=== PATIENT | male | born 1940 | race Caucasian/White ===

== ENCOUNTER 2023-12-25 06:01 | Inpatient (IN) ==
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
[2023-12-25 06:52] LABS: Basophils # (auto) 0.05 K/uL (0.00-0.20); Basophils % (auto) 0.5 %; Eosinophils # (auto) 0.49 K/uL (0.00-0.50); Hematocrit (blood only) 37.9 % (42.0-52.0); Hemoglobin 12.1 g/dl (14.0-18.0); Immature Granulocytes # (auto) 0.05 K/uL (0.01-0.20); Immature Granulocytes % (auto) 0.5 %; Lymphocytes # (auto) 1.36 K/uL (1.20-3.40); Mean Corpuscular Hemoglobin 26.9 pg (25.0-34.0); Mean Corpuscular Hgb Conc 31.9 g/dL (32.0-36.0); Mean Corpuscular Volume 84.4 fL (80.0-100.0); Mean Platelet Volume 8.7 fL (9.4-12.4); Monocytes % (auto) 6.2 %; Neutrophils # (auto) 7.17 K/uL (1.40-6.50); Neutrophils % (auto) 73.8 %; Platelet Count 230 K/uL (130-400); RDW Coefficient of Variation 13.8 % (11.5-14.5); RDW Standard Deviation 42.9 fL (36.4-46.3); Red Blood Count 4.49 M/uL (4.70-6.10); White Blood Count 9.72 K/ul (4.8-10.8)
[2023-12-25] MEDS: ACETAMINOPHEN 325 MG TAB PO STA (07:04)
[2023-12-25] MEDS: SODIUM CHLORIDE 0.9% 500 ML IV ONE (07:05)
--- NOTE | 2023-12-25 07:08 | CT Scan Report ---
CT SCAN OF THE BRAIN WITHOUT IV CONTRAST CLINICAL HISTORY: Change in mental status. COMPARISON STUDY: No priors. TECHNIQUE: Unenhanced axial CT scan of the brain is performed from the vertex to the skull base. A do se lowering technique was utilized adhering to the principles of ALARA. CT DOSE: 800.63 mGy.cm FINDINGS: Brain parenchyma: There is age-related involutional change noting mild to moderate subcortical and pe riventricular microangiopathic disease. There is no hemorrhage, mass effect, or evidence of acute ter ritorial ischemia by CT criteria. Myles-white matter differentiation is preserved. No extra-axial flui d collection is seen. Ventricles, sulci, cisterns: Prominent secondary to involutional change. Intracranial vasculature: There is atherosclerotic calcification of the cavernous carotid and vertebr al arteries. Calvarium: Unremarkable. Sinuses and mastoids: There is trace mucosal thickening within the maxillary antra. The remaining par anasal sinuses are clear. The mastoid air cells are well pneumatized. Orbits: The bony orbits are grossly intact. There are bilateral ocular lens implants. IMPRESSION: There is no hemorrhage, mass effect, or evidence of acute territorial ischemia by CT negin mantilla. ACT 112: Negative or not required by law. Electronically signed by: Danilo Hernandez M.D. 12/25/2023 7:06 AM
[2023-12-25] MEDS: ONDANSETRON INJ 2 MG/ML 2 ML VIAL IV STA (07:12)
--- NOTE | 2023-12-25 07:12 | XRay Report ---
SINGLE VIEW CHEST CLINICAL HISTORY: Change in mental status. FINDINGS: An AP, portable, upright chest radiograph is obtained. No prior studies are available for c omparison at the time of dictation. The heart is enlarged noting atherosclerotic calcification of the thoracic aorta. The pulmonary vasculature is noncongested. Nonspecific interstitial thickening is li rosa maria chronic. There is bibasilar scarring/atelectasis. No airspace consolidation or large pleural eff usion is identified. No pneumothorax is seen. The skeletal structures are osteopenic. The bony thorax is grossly intact. Arthritic change is seen in the shoulders and spine. IMPRESSION: Cardiomegaly with no acute cardiopulmonary abnormality identified. ACT 112: Negative or not required by law. Electronically signed by: Danilo Hernandez M.D. 12/25/2023 7:11 AM
[2023-12-25 07:22] LABS: Prothrombin Time 10.9 Seconds (9.0-12.0)
[2023-12-25 07:25] LABS: Albumin Globulin Ratio 1.1 (0.9-2); Bilirubin,Total 0.4 mg/dl (0.2-1.0); Calcium 9.8 mg/dl (8.6-10.3); Est GFR (African American) 45.5 ml/min; Est GFR (Non-African American) 39.3 ml/min; Globulin 3.5 gm/dl (2.5-4.0); Magnesium 1.9 mg/dl (1.7-2.4); Potassium 4.2 mmol/L (3.5-5.1); Total Protein 7.5 gm/dl (6.0-8.3)
[2023-12-25 07:32] LABS: Troponin I High Sensitivity 14.6 pg/ml (0-20)
[2023-12-25 07:42] LABS: Thyroid Stimulating Hormone 1.173 uIu/ml (0.300-4.500)
[2023-12-25 08:39] LABS: Appearance Urine Clear (Clear); Bacteria Urine Automated None Seen (None Seen); Bilirubin Urine Negative (Negative); Blood Urine Negative (Negative); Color Urine Yellow; Epithelial Cell Urine Auto 0-2 /hpf (0-2); Glucose Urine UA Trace (Negative); Ketones Urine Negative (Negative); Leukocyte Esterase Urine Negative (Negative); Nitrite Urine Negative (Negative); Protein Urine 3+ (Negative); RBC Urine Automated 0-2 /hpf (0-2); Specific Gravity Urine 1.019 (1.000-1.030); Urobilinogen Urine Negative (Negative); WBC Urine Automated 0-5 /hpf (0-5); pH Urine 5.5 (4.5-7.5)
[2023-12-25 08:52] LABS: Adenovirus PCR Not Detected (NotDetected); Bordetella parapertussis PCR Not Detected (NotDetected); Bordetella pertussis PCR Not Detected (NotDetected); Chlamydia pneumoniae PCR Not Detected (NotDetected); Coronavirus 229E PCR Not Detected (NotDetected); Coronavirus CoV-2 (COVID19)PCR Not Detected (NotDetected); Coronavirus HKU1 PCR Not Detected (NotDetected); Coronavirus NL63 PCR Not Detected (NotDetected); Coronavirus OC43PCR Not Detected (NotDetected); Human Metapneumovirus PCR Not Detected (NotDetected); Influenza A PCR Not Detected (NotDetected); Influenza B PCR Not Detected (NotDetected); Mycoplasma pneumoniae PCR Not Detected (NotDetected); Parainfluenza Virus 1 PCR Not Detected (NotDetected); Parainfluenza Virus 2 PCR Not Detected (NotDetected); Parainfluenza Virus 3 PCR Not Detected (NotDetected); Parainfluenza Virus 4 PCR Not Detected (NotDetected); Respiratory Syncytial VirusPCR Not Detected (NotDetected); Rhinovirus/Enterovirus PCR Not Detected (NotDetected)
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
[2023-12-25] MEDS: PHENYTOIN SODIUM ER 100 MG CAP PO SCH (10:30)
[2023-12-25 10:36] LABS: Base Excess VBG 2.1 mEq/L; HCO3 VBG 28 mmol/L; Oxygen Saturation VBG < 60.0 %; PCO2 VBG 47 mmHg (38-50); PO2 VBG 23 mmHg; pH VBG 7.38 (7.36-7.41)
[2023-12-25 11:25] LABS: Amphetamines+Metham, Urine Neg (Neg); Barbiturates, Urine Neg (Neg); Benzodiazepine, Urine Neg (Neg); Cocaine, Urine Neg (Neg); Fentanyl, Urine Neg (Neg); MDMA (Ecstacy), Urine Neg (Neg); Marijuana, Urine Neg (Neg); Methadone, Urine Neg (Neg); Opiate, Urine Neg (Neg); Phencyclidine, Urine Neg (Neg)
[2023-12-25] MEDS: GADOBUTROL 65ML VIAL IV ONE (12:15)
--- NOTE | 2023-12-25 13:02 | Magnetic Resonance Report ---
MR brain wo/w con HISTORY: 83 years-old Male confusion, melanoma acutely altered mental status COMPARISON: Head CT same day TECHNIQUE: Multiplanar multisequence MRI the brain was obtained with and without IV contrast. FINDINGS: No restricted diffusion to suggest acute or subacute infarct. Midline structures are unremarkable. De generative changes of the cervical spine. There is no acute intracranial hemorrhage, midline shift, a bnormal extra-axial collection, hydrocephalus or intra-axial mass. Study is motion degraded. Cerebral venous sinuses and major arterial flow voids appear patent. Prior bilateral lens repair. Sku ll, orbits and soft tissues are unremarkable. Trace mastoid effusions. Mild mucosal thickening of the paranasal sinuses. Rightward bowing and spurring of the nasal septum. Involutional changes. No evide nce of mesial temporal sclerosis, devries matter heterotopia or cortical dysplasia. No abnormal enhancem ent. Mild T2/FLAIR hyperintense foci throughout the white matter suggestive of chronic microvascular ischemic disease. IMPRESSION: 1. No acute intracranial abnormality. No acute or subacute infarct. 2. No acute seizure focus or evidence of mesial temporal sclerosis. 3. No abnormal enhancement. ACT 112: Negative or not required by law. The above report was generated using voice recognition software. It may contain grammatical, syntax o r spelling errors. Electronically signed by: Angel Luis Marcus M.D. 12/25/2023 1:00 PM
[2023-12-25] MEDS: OLANZapine 10 MG/2.1 ML SDV IM PRN (14:52)
[2023-12-25] MEDS: hydrALAZINE HCL 20 MG/ML VIAL IV STA ×2 (15:41→17:00)
--- NOTE | 2023-12-25 16:24 | Electrocardiogram Report ---
Test Reason : Blood Pressure : / mmHG Vent. Rate : 062 BPM Atrial Rate : 062 BPM P-R Int : 176 ms QRS Dur : 088 ms QT Int : 430 ms P-R-T Axes : 037 -36 027 degrees QTc Int : 436 ms Normal sinus rhythm Left axis deviation Minimal voltage criteria for LVH, may be normal variant ( R in aVL ) Abnormal ECG No previous ECGs available Confirmed by Micah Sow ([id number]) on 12/25/2023 4:24:35 PM Referred By: REFERRED SELF Confirmed By:Micah Sow
[2023-12-25] MEDS ORDERED: MAGNESIUM HYDROXIDE SUSP 30 ML UDC PO PRN (19:59)
[2023-12-25] MEDS ORDERED: GLUCOSE 10 TAB/TUBE PO PRN (19:59)
[2023-12-25] MEDS ORDERED: hydrALAZINE HCL 20 MG/ML VIAL IV PRN (19:59)
[2023-12-25] MEDS ORDERED: ALUMINUM/MAGNESIUM SUSP 30 ML UDC PO PRN (19:59)
[2023-12-25] MEDS ORDERED: DEXTROSE 50% 50 ML SYRINGE IV PRN (19:59)
[2023-12-25] MEDS ORDERED: GLUCAGON FOR INJ 1 MG VIAL SQ PRN (19:59)
[2023-12-25] MEDS ORDERED: GLUCOSE 40% GEL 15 GM TUBE PO PRN (19:59)
[2023-12-25] MEDS ORDERED: ONDANSETRON INJ 2 MG/ML 2 ML VIAL IV PRN (19:59)
[2023-12-25] MEDS ORDERED: LACTATED RINGER'S 1,000 ML IV SCH (19:59)
[2023-12-25] MEDS ORDERED: POLYETHYLENE (MIRALAX) 17 GM PACK PO PRN (19:59)
[2023-12-25] MEDS ORDERED: CARBOHYDRATES FOR HYPOGLYCEMIA PO PRN (19:59)
[2023-12-25] MEDS ORDERED: PHARMACIST DISCHARGE MED REC CONSULT PRN (19:59)
[2023-12-25] MEDS: LACTATED RINGER'S 1,000 ML IV SCH (20:17)
[2023-12-25] MEDS: PROPRANOLOL HCL LA 80 MG CAPCR PO SCH (21:01)
[2023-12-25] MEDS: cilostazoL 100 MG TAB PO SCH (21:01)
[2023-12-25] MEDS: TAMSULOSIN HCL 0.4 MG CAP PO SCH (21:01)
[2023-12-25] MEDS: ATORVASTATIN 40 MG TAB PO SCH (21:02)
[2023-12-25] MEDS: DOCUSATE SODIUM 100 MG CAP PO SCH (21:02)
[2023-12-25] MEDS: FAMOTIDINE 20 MG TAB PO SCH (21:02)
[2023-12-25] MEDS: INSULIN ASPART PER UNIT CHARGE SC SCH (21:20)
[2023-12-25] MEDS: LANTUS PER UNIT CHARGE SQ SCH (21:21)
[2023-12-26] MEDS: LEVOTHYROXINE SODIUM 125 MCG TABLET PO SCH (04:20)
[2023-12-26 07:05] LABS: Basophils # (auto) 0.04 K/uL (0.00-0.20); Basophils % (auto) 0.5 %; Eosinophils # (auto) 0.51 K/uL (0.00-0.50); Eosinophils % (auto) 6.1 %; Hematocrit (blood only) 35.9 % (42.0-52.0); Hemoglobin 11.7 g/dl (14.0-18.0); Immature Granulocytes # (auto) 0.04 K/uL (0.01-0.20); Immature Granulocytes % (auto) 0.5 %; Lymphocytes # (auto) 2.12 K/uL (1.20-3.40); Lymphocytes % (auto) 25.4 %; Mean Corpuscular Hemoglobin 26.7 pg (25.0-34.0); Mean Corpuscular Hgb Conc 32.6 g/dL (32.0-36.0); Mean Corpuscular Volume 81.8 fL (80.0-100.0); Mean Platelet Volume 8.5 fL (9.4-12.4); Monocytes # (auto) 0.84 K/uL (0.11-0.59); Monocytes % (auto) 10.1 %; Neutrophils # (auto) 4.79 K/uL (1.40-6.50); Neutrophils % (auto) 57.4 %; Platelet Count 219 K/uL (130-400); RDW Standard Deviation 41.1 fL (36.4-46.3); Red Blood Count 4.39 M/uL (4.70-6.10); White Blood Count 8.34 K/ul (4.8-10.8)
[2023-12-26 07:12] LABS: Estimated Average Glucose 126 mg/dl
[2023-12-26 07:25] LABS: Albumin Globulin Ratio 1.2 (0.9-2); Albumin Level 3.5 gm/dl (3.4-5.0); BUN Creatinine Ratio 19.7 (10-20); Bilirubin,Total 0.4 mg/dl (0.2-1.0); Calcium 9.2 mg/dl (8.6-10.3); Chol HDL Ratio 4.4 (0-5); Creatinine Clr Calc Pharmacy 39.4 ml/min; Est GFR (African American) 52.6 ml/min; Est GFR (Non-African American) 45.4 ml/min; Globulin 2.9 gm/dl (2.5-4.0); Magnesium 1.8 mg/dl (1.7-2.4); Potassium 4.1 mmol/L (3.5-5.1); Total Protein 6.4 gm/dl (6.0-8.3)
--- NOTE | 2023-12-26 07:40 | Ultrasound Report ---
ULTRASOUND OF THE CAROTID ARTERIES CLINICAL HISTORY: cva w/u TECHNIQUE: Real-time, grayscale, and color Doppler sonography of the bilateral carotid arteries is pe rformed. Images are reviewed in the transverse and longitudinal planes. COMPARISON: None available at the time of this dictation. FINDINGS: The carotid arteries are patent bilaterally and demonstrate antegrade flow. There is mild atheroscler otic plaque on the right and mild atherosclerotic plaque on the left. Normal doppler arterial wavefor ms are seen throughout. Velocity measurements are listed below. Common carotid peak systolic velocity (cm/sec): RIGHT: 76 LEFT: 80 ICA peak systolic velocity (cm/sec): RIGHT: 38 LEFT: 52 ICA/CC peak systolic ratio: RIGHT: 0.5 LEFT: 0.7 Antegrade flow was shown in the vertebral arteries. The external carotid arteries are patent. Inciden hailey note is made of tortuous course of the left internal carotid artery. IMPRESSION: 1. There is no sonographic evidence of hemodynamically significant stenosis in the right or left car otid arterial system. 2. Antegrade flow is shown in the vertebral arteries. Society of Radiologists in Ultrasound consensus guidelines: Normal: ICA PSV is <125 cm/sec and no plaque or intimal thickening is visible sonographically additional criteria include ICA/CCA PSV ratio <2.0 and ICA EDV <40 cm/sec <50% ICA stenosis: ICA PSV is <125 cm/sec and plaque or intimal thickening is visible sonographically additional criteria include ICA/CCA PSV ratio <2.0 and ICA EDV <40 cm/sec 50-69% ICA stenosis: ICA PSV is 125-230 cm/sec and plaque is visible sonographically additional criteria include ICA/CCA PSV ratio of 2.0-4.0 and ICA EDV of 40-100 cm/sec ?70% ICA stenosis but less than near occlusion: ICA PSV is >230 cm/sec and visible plaque and luminal narrowing are seen at devries-scale and color Dopp ler ultrasound (the higher the Doppler parameters lie above the threshold of 230 cm/sec, the greater the likelihood of severe disease) additional criteria include ICA/CCA PSV ratio >4 and ICA EDV >100 cm/sec ACT 112: Negative or not required by law. Electronically signed by: Manuel Lao M.D. 12/26/2023 7:39 AM
[2023-12-26] MEDS: ASPIRIN 81 MG ECTAB PO SCH (08:32)
[2023-12-26] MEDS: FINASTERIDE 5 MG TAB PO SCH (08:32)
[2023-12-26] MEDS: HEPARIN SOD 5,000 UNIT/0.5 ML VIAL SQ SCH (08:33)
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
[2023-12-26] MEDS: amLODIPine BESYLATE 5 MG TAB PO SCH (16:48)
--- NOTE | 2023-12-27 06:32 | Electroencephalogram ---
EEG Procedure Note Date of Service December 26, 2023 Start / End Times Start Time: 11:33 End Time: 11:[address] Grajeda History An 83 yo M with altered mental status. EEG performed for evaluation of epileptiform activity. Home Medication List Medication Instructions Recorded Confirmed Type Centrum 1 tab PO DAILY 12/25/23 12/25/23 History aspirin 81 mg tablet,delayed 81 mg PO DAILY 12/25/23 12/25/23 History release atorvastatin 80 mg tablet 80 mg PO PM 12/25/23 12/25/23 History cilostazol 50 mg tablet 50 mg PO BID 12/25/23 12/25/23 History docusate sodium 100 mg capsule 100 mg PO BID 12/25/23 12/25/23 History famotidine 20 mg tablet 20 mg PO BID 12/25/23 12/25/23 History finasteride 5 mg tablet 5 mg PO DAILY 12/25/23 12/25/23 History glipizide 10 mg tablet 10 mg PO BID 12/25/23 12/25/23 History levothyroxine 125 mcg tablet 125 mcg PO QAM 12/25/23 12/25/23 History nitroglycerin 0.4 mg sublingual 0.4 mg sublingual UD PRN Chest Pain 12/25/23 12/25/23 History tablet phenytoin sodium extended 100 mg 100 mg PO DAILY 12/25/23 12/25/23 History capsule propranolol 160 mg capsule,24 160 mg PO HS 12/25/23 12/25/23 History hr,extended release sitagliptin phosphate 50 1 tab PO BID 12/25/23 12/25/23 History mg-metformin 1,000 mg tablet (Lino) tamsulosin 0.4 mg capsule 0.4 mg PO BID 12/25/23 12/25/23 History Inpatient Medication List Amlodipine Besylate (Amlodipine Besylate 5 Mg Tab) 5 mg PO QAM [facility] Stop: 01/25/24 15:44 Last Admin: 12/26/23 16:48 Dose: 5 mg Documented By: HAILEY Aspirin (Aspirin 81 Mg Ectab) 81 mg PO DAILY [facility] Stop: 01/25/24 08:59 Last Admin: 12/26/23 08:32 Dose: 81 mg Documented By: HAILEY Atorvastatin Calcium (Atorvastatin 40 Mg Tab) 80 mg PO PM [facility] Stop: 01/24/24 20:59 Last Admin: 12/26/23 20:21 Dose: 80 mg Documented By: Admin: 12/25/23 21:02 Dose: 80 mg Documented By: HATTIE Cilostazol (Cilostazol 100 Mg Tab) 50 mg PO BID ALESSANDRA Stop: 01/24/24 20:59 Last Admin: 12/26/23 20:21 Dose: 50 mg Documented By: Admin: 12/26/23 08:30 Dose: 50 mg Documented By: Admin: 12/25/23 21:01 Dose: 50 mg Documented By: HATTIE Docusate Sodium (Docusate Sodium 100 Mg Cap) 100 mg PO BID ALESSANDRA Stop: 01/24/24 20:59 Last Admin: 12/26/23 20:24 Dose: 100 mg Documented By: Admin: 12/26/23 08:30 Dose: 100 mg Documented By: Admin: 12/25/23 21:02 Dose: 100 mg Documented By: HATTIE Famotidine (Famotidine 20 Mg Tab) 20 mg PO BID ALESSANDRA Stop: 01/24/24 20:59 Last Admin: 12/26/23 20:21 Dose: 20 mg Documented By: Admin: 12/26/23 08:30 Dose: 20 mg Documented By: Admin: 12/25/23 21:02 Dose: 20 mg Documented By: HATTIE Finasteride (Finasteride 5 Mg Tab) 5 mg PO DAILY ALESSANDRA Stop: 01/25/24 08:59 Last Admin: 12/26/23 08:32 Dose: 5 mg Documented By: HAILEY Heparin Sodium (Porcine) (Heparin Sod 5,000 Unit/0.5 Ml Vial) 5,000 units SQ Q8 ALESSANDRA Stop: 01/25/24 08:59 Last Admin: 12/27/23 06:17 Dose: 5,000 units Documented By: Admin: 12/26/23 20:26 Dose: 5,000 units Documented By: Admin: 12/26/23 15:17 Dose: 5,000 units Documented By: Admin: 12/26/23 08:33 Dose: 5,000 units Documented By: HAILEY Insulin Aspart (Insulin Aspart Per Unit Charge) 0 units SC ACHS ALESSANDRA Stop: 01/24/24 20:59 Last Admin: 12/26/23 20:25 Dose: 1 units Documented By: PAULINA Co-signed By: TRACEY Admin: 12/26/23 17:44 Dose: 1 units Documented By: HAILEY Co-signed By: FELISA Admin: 12/26/23 13:04 Dose: 4 units Documented By: [id number] Co-signed By: HAILEY Admin: 12/26/23 09:03 Dose: 4 units Documented By: [id number] Co-signed By: HAILEY Admin: 12/25/23 21:20 Dose: 1 units Documented By: HATTIE Co-signed By: RICHARD Insulin Glargine (Lantus Per Unit Charge) 0 - 8 units SQ BID ALESSANDRA Stop: 01/24/24 20:59 Last Admin: 12/26/23 20:25 Dose: 4 units Documented By: PAULINA Co-signed By: TRACEY Admin: 12/26/23 09:02 Dose: 4 units Documented By: [id number] Co-signed By: HAILEY Admin: 12/25/23 21:21 Dose: 4 units Documented By: HATTIE Co-signed By: RICHARD Levothyroxine Sodium (Levothyroxine Sodium 125 Mcg Tablet) 125 mcg PO DAILYBB ALESSANDRA Stop: 01/25/24 06:29 Last Admin: 12/27/23 06:17 Dose: 125 mcg Documented By: Admin: 12/26/23 04:20 Dose: 125 mcg Documented By: HATTIE Olanzapine (Olanzapine 10 Mg/2.1 Ml Sdv) 2.5 mg IM Q6H PRN PRN Reason: Agitation/Combative Stop: 01/24/24 14:29 Last Admin: 12/26/23 20:43 Dose: 2.5 mg Documented By: Admin: 12/25/23 14:52 Dose: 2.5 mg Documented By: ANNIE Phenytoin Sodium (Phenytoin Sodium Er 100 Mg Cap) 100 mg PO DAILY ALESSANDRA Stop: 01/24/24 09:29 Last Admin: 12/26/23 09:57 Dose: 100 mg Documented By: [id number] Admin: 12/25/23 10:30 Dose: 100 mg Documented By: W[place] Propranolol HCl (Propranolol Hcl La 80 Mg Capcr) 160 mg PO HS ALESSANDRA Stop: 01/24/24 20:59 Last Admin: 12/26/23 20:25 Dose: 160 mg Documented By: Admin: 12/25/23 21:01 Dose: 160 mg Documented By: HATTIE Tamsulosin HCl (Tamsulosin Hcl 0.4 Mg Cap) 0.4 mg PO BID ALESSANDRA Stop: 01/24/24 20:59 Last Admin: 12/26/23 20:26 Dose: 0.4 mg Documented By: Admin: 12/26/23 08:32 Dose: 0.4 mg Documented By: Admin: 12/25/23 21:01 Dose: 0.4 mg Documented By: HATTIE Discontinued Medications Acetaminophen (Acetaminophen 325 Mg Tab) 650 mg PO NOW STA Stop: 12/25/23 06:52 Last Admin: 12/25/23 07:04 Dose: 650 mg Documented By: WASHINGTON Gadobutrol (Gadobutrol 65ml Vial) 9 ml IV ONCE ONE Stop: 12/25/23 12:15 Last Admin: 12/25/23 12:15 Dose: 9 ml Documented By: RAULITO Hydralazine HCl (Hydralazine Hcl 20 Mg/Ml Vial) 10 mg IV NOW STA Stop: 12/25/23 15:15 Last Admin: 12/25/23 15:41 Dose: 10 mg Documented By: ANNIE Hydralazine HCl (Hydralazine Hcl 20 Mg/Ml Vial) 10 mg IV NOW STA Stop: 12/25/23 16:33 Last Admin: 12/25/23 17:00 Dose: 10 mg Documented By: ANNIE Sodium Chloride (Nss) 500 mls @ 999 mls/hr IV .Q31M ONE Stop: 12/25/23 07:21 Last Infusion: 12/25/23 07:37 Dose: Infused Documented By: Admin: 12/25/23 07:05 Dose: 999 mls/hr Documented By: WASHINGTON Lactated Ringer's (Lr) 1,000 mls @ 80 mls/hr IV .[id number] ALESSANDRA Stop: 12/26/23 08:28 Last Infusion: 12/26/23 08:29 Dose: Infused Documented By: Admin: 12/25/23 20:17 Dose: 80 mls/hr Documented By: HATTIE Ondansetron HCl (Ondansetron Inj 2 Mg/Ml 2 Ml Vial) 4 mg IV NOW STA Stop: 12/25/23 06:52 Last Admin: 12/25/23 07:12 Dose: Not Given Documented By: WASHINGTON Description This is a 21 electrode EEG with a single channel dedicated to limited EKG. The electrodes were placed in accordance with the International 10-20 system. REPORT: At the onset of the EEG the patient is awake. The background is symmetric with posterior dominant rhythm of 7-8 Hz. Drowsiness is characterized by increased theta activity and decreased myogenic artifact. No stage II sleep transient are seen. Interpretation IMPRESSION: THis is an abnormal awake and drowsy routine EEG due to mild backgorund slowing suggestive of a mild non specific encephalopathy.
[2023-12-27 07:08] LABS: BUN Creatinine Ratio 19.8 (10-20); Calcium 8.8 mg/dl (8.6-10.3); Creatinine Clr Calc Pharmacy 31.6 ml/min; Est GFR (African American) 40.3 ml/min; Est GFR (Non-African American) 34.7 ml/min; Magnesium 1.8 mg/dl (1.7-2.4); Phosphorus 3.8 mg/dl (2.5-4.9); Potassium 4.1 mmol/L (3.5-5.1)
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
[2023-12-27] MEDS: LACTATED RINGER'S 500 ML IV ONE (17:48)
[2023-12-27] MEDS: OLANZAPINE 2.5 MG TAB PO SCH (20:32)
[2023-12-28 08:31] LABS: Hematocrit (blood only) 36.3 % (42.0-52.0); Hemoglobin 11.8 g/dl (14.0-18.0); Mean Corpuscular Hemoglobin 26.8 pg (25.0-34.0); Mean Corpuscular Hgb Conc 32.5 g/dL (32.0-36.0); Mean Corpuscular Volume 82.5 fL (80.0-100.0); Mean Platelet Volume 8.9 fL (9.4-12.4); Platelet Count 227 K/uL (130-400); RDW Coefficient of Variation 13.7 % (11.5-14.5); White Blood Count 7.48 K/ul (4.8-10.8)
[2023-12-28 08:37] LABS: BUN Creatinine Ratio 22.2 (10-20); Calcium 9.3 mg/dl (8.6-10.3); Creatinine Clr Calc Pharmacy 33.5 ml/min; Est GFR (African American) 43.2 ml/min; Est GFR (Non-African American) 37.3 ml/min; Potassium 4.1 mmol/L (3.5-5.1)
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
[2023-12-29 19:14] LABS: A calco-baum cmplx NotReported Not Detected (NotDetected); Bact fragilis Not Reported Not Detected (NotDetected); Blood Culture Id Panel PCR Panel Negative (NotDetected); C auris Not Reported Not Detected (NotDetected); Calbicans Not Reported Not Detected (NotDetected); Candida glabrata Not Reported Not Detected (NotDetected); Candida krusei Not Reported Not Detected (NotDetected); Cneoformans/gatti Not Reported Not Detected (NotDetected); Cparapsilosis Not Reported Not Detected (NotDetected); E cloacae compx Not Reported Not Detected (NotDetected); Efaecalis Not Reported Not Detected (NotDetected); Efaecium Not Reported Not Detected (NotDetected); Enterobacterales Not Reported Not Detected (NotDetected); Escherichia coli Not Reported Not Detected (NotDetected); H influenzae Not Reported Not Detected (NotDetected); K aerogenes Not Reported Not Detected (NotDetected); Koxytoca Not Reported Not Detected (NotDetected); Kpneumoniae grp Not Reported Not Detected (NotDetected); Lmonocyt Not Reported Not Detected (NotDetected); N meningitidis Not Reported Not Detected (NotDetected); P aeruginosa Not Reported Not Detected (NotDetected); Proteus spp Not Reported Not Detected (NotDetected); Salmonella spp Not Reported Not Detected (NotDetected); Smarcescens Not Reported Not Detected (NotDetected); Staph lugdunensis Not Reported Not Detected (NotDetected); Staph spp. Not Reported Not Detected (NotDetected); Staphaureus Not Reported Not Detected (NotDetected); Staphepi Not Reported Not Detected (NotDetected); Stenmaltophilia Not Reported Not Detected (NotDetected); Strep agal(GrpB) Not Reported Not Detected (NotDetected); Strep pneum Not Reported Not Detected (NotDetected); Strep pyog (GrpA) Not Reported Not Detected (NotDetected); Strep spp Not Reported Not Detected (NotDetected)
[2023-12-29] MEDS: OLANZapine 5 MG TABLET PO SCH (19:38)
[2023-12-29] MEDS: PIPERACILLIN/TAZOBACTAM 4.5 GM/100 ML BAG IV ONE (20:08)
[2023-12-30] MEDS: PIPERACILLIN/TAZOBACTAM 4.5 GM in DEXTROSE 5% MINI-B 100 ML IV SCH (01:51)
[2023-12-30 06:27] LABS: Basophils # (auto) 0.04 K/uL (0.00-0.20); Basophils % (auto) 0.5 %; Eosinophils # (auto) 0.65 K/uL (0.00-0.50); Eosinophils % (auto) 8.1 %; Hematocrit (blood only) 32.8 % (42.0-52.0); Hemoglobin 10.6 g/dl (14.0-18.0); Immature Granulocytes # (auto) 0.04 K/uL (0.01-0.20); Immature Granulocytes % (auto) 0.5 %; Lymphocytes # (auto) 2.17 K/uL (1.20-3.40); Lymphocytes % (auto) 27.2 %; Mean Corpuscular Hemoglobin 26.6 pg (25.0-34.0); Mean Corpuscular Hgb Conc 32.3 g/dL (32.0-36.0); Mean Corpuscular Volume 82.4 fL (80.0-100.0); Mean Platelet Volume 8.8 fL (9.4-12.4); Neutrophils # (auto) 4.28 K/uL (1.40-6.50); Neutrophils % (auto) 53.7 %; Platelet Count 219 K/uL (130-400); RDW Coefficient of Variation 13.7 % (11.5-14.5); RDW Standard Deviation 41.2 fL (36.4-46.3); Red Blood Count 3.98 M/uL (4.70-6.10); White Blood Count 7.98 K/ul (4.8-10.8)
[2023-12-30 06:44] LABS: BUN Creatinine Ratio 21.1 (10-20); Creatinine Clr Calc Pharmacy 27.4 ml/min; Est GFR (African American) 33.9 ml/min; Est GFR (Non-African American) 29.3 ml/min; Magnesium 1.8 mg/dl (1.7-2.4); Potassium 4.3 mmol/L (3.5-5.1)
[2023-12-30] MEDS: LACTATED RINGER'S 500 ML IV ONE (08:47)
[2023-12-30 13:23] LABS: Appearance Urine Clear (Clear); Bacteria Urine Automated None Seen (None Seen); Bilirubin Urine Negative (Negative); Blood Urine Negative (Negative); Cast Urine Automated 0-2 /lpf (0-2); Color Urine Yellow; Epithelial Cell Urine Auto 0-2 /hpf (0-2); Glucose Urine UA Negative (Negative); Ketones Urine Negative (Negative); Leukocyte Esterase Urine Negative (Negative); Nitrite Urine Negative (Negative); Protein Urine 2+ (Negative); RBC Urine Automated 0-2 /hpf (0-2); Specific Gravity Urine 1.013 (1.000-1.030); Urobilinogen Urine Negative (Negative); WBC Urine Automated 0-5 /hpf (0-5); pH Urine 5.5 (4.5-7.5)
[2023-12-30 13:37] LABS: Urine Potassium 30.5 mmol/L
--- NOTE | 2023-12-30 16:08 | Hospitalist Progress Note ---
Date of Service December 30, 2023 Assessment & Plan (1) Altered mental status: (2) Paranoia: (3) CAD (coronary artery disease): (4) T2DM (type 2 diabetes mellitus): (5) Melanoma: Plan Mr. Reynoso is an 83-year-old male who has significant past medical history of CAD with history of coronary artery stent, PAD on Pletal, T2DM, HTN, HLD, BPH, Seizure d/o and malignant melanoma who was admitted for evaluation of encephalopathy. Patient reportedly violent with son/family while on road trip. MRI unrevealing. Carotids negative. No signs of melanoma infiltration in [facility]. Spoke to son and daughter in law---decline noted for last couple of years, but this "outburst" first of its kind. would like to pursue placement in interim. Aggressive overnight with behavioral disturbance on 12/25. Patient started on zyprexa qhs on 12/26. Plan to continue. No further aggressive outbursts. Patient much more calm today, fluctuating confusion noted, but stable. Spoke to son on the phone, agrees with plan. Remains stable for dispo, however, no dedicated renal imaging, us ordered. #Acute encephalopathy, c/f agitated delirium *improving #Neurocognitive disorder, suspicious for dementia Brief psychotic episode H/O Seizure disorder No obvious source of infection DD: Metabolic/metastatic disease/seizure/medications/delirium/hypertensive encephalopathy --CT head:There is no hemorrhage, mass effect, or evidence of acute territorial ischemia by CT criteria. --CXR:Cardiomegaly with no acute cardiopulmonary abnormality identified. --UA not suggestive of UTI --Normal TSH, lactate, procalcitonin, CK levels, Normal BioFire --VBG showed no hypercarbia --MRI brain negative toxicology screen negative, alcohol level 0 B12 350, ammonia levels 17 --Blood cultures NGTD --EEG nonspecific changes -- Hold sedating meds as able --Consulted neurology Suspect likely delirium on underlying dementia, no further work up--dementia work up as OP --Consulted psychiatry no clear history of psych d/o, suspect dementia as well; history of anger issues from family report -olanzapine 2.5mg PO?IM prn for agitation -Continue to 5mg qhs Continue home phenytoin #Blood culture contaminate -07/11 blood culture + after 5 days, likely contaminant CTM clinic status stable no need for further medications at this time #Malignant melanoma Left scalp region S/P confirmed biopsy Plan for surgical excision No MRI involvement in [facility] noted #Hypertensive urgency Likely situational Continue home propranolol for now If BP persistently elevated, will add antihypertensives Monitor BP closely continue amlodipine now--increased to 10mg daily #Possible CECILIA Vs CKD Unknown baseline creatinine Creatinine 1.6, down to 1.4 this am, CTM Avoid nephrotoxic agents as able Likely CKD given stabillity of renal function BMP in am, repeat urine studies ordered--proteinuria, all else normal Renal us ordered #DM Type II Will hold oral diabetic meds Update A1c: 6.0% 12/25 ISS, basal Insulin, Accu checks per protocol Monitor BGs #Seizure disorder No recent seizure episode for many years per family Continue phenytoin #CAD S/P stent PAD Continue aspirin, Lipitor, cilostazol #Hypothyroidism Normal TSH Continue levothyroxine #BPH Continue home medications Bladder scan as needed #Anemia of chronic disease Anemia work up unrevealing, suggestive of AoCD DVT Px: Heparin SQ CODE STATUS DNI DNR as per patient's son-POA Disposition Admit to PCU PT OT prior to discharge: plan for placement/rehab, referral to [facility] Admission and Anticipated Discharge Date Admission Date: December 25, 2023 Subjective NAEO Much more engaging, however, still with intermittent confusion noted--mentioning "gym" which is possibly related to going to rehab? Denies any acute concerns 1+ blood culture with GPB from >5days, started on zosyn overnight, however likely contaminent Physical Exam Constitutional: WD/WN, vitals as above Respiratory: normal respiratory effort, lungs clear to auscultation Cardiovascular: RRR, no murmur, no edema Results & Data Results & Data Vital Signs (Past 12 Hours) Vital Signs Temp Pulse Resp BP Pulse Ox O2 Del Method 12/30/23 15:01 36.5 C 64 18 179/82 H 96 Room Air 12/30/23 07:16 36.7 C 59 L 18 124/50 L 95 Room Air Laboratory Results Short CBC 12/30/23 Range/Units 06:01 WBC 7.98 (4.8-10.8) K/ul Hgb 10.6 L (14.0-18.0) g/dl Hct 32.8 L (42.0-52.0) % Plt Count 219 (130-400) K/uL BMP 12/30/23 06:01 Sodium 139 Potassium 4.3 Chloride 105 Carbon Dioxide 27 BUN 43 H Creatinine 2.04 H D Glucose 179 H Calcium 9.0 Urine 12/30/23 Range/Units Unknown Urine Color Yellow Urine Appearance Clear (Clear) Urine pH 5.5 (4.5-7.5) Ur Specific [place] 1.013 (1.000-1.030) Urine Protein 2+ H (Negative) Urine Glucose (UA) Negative (Negative) Medications Administered Home Medications Medication Instructions Recorded Confirmed Last Taken Centrum 1 tab PO DAILY 12/25/23 12/25/23 12/24/23 aspirin 81 mg tablet,delayed 81 mg PO DAILY 12/25/23 12/25/23 12/24/23 release atorvastatin 80 mg tablet 80 mg PO PM 12/25/23 12/25/23 12/24/23 cilostazol 50 mg tablet 50 mg PO BID 12/25/23 12/25/23 12/24/23 docusate sodium 100 mg capsule 100 mg PO BID 12/25/23 12/25/23 12/24/23 famotidine 20 mg tablet 20 mg PO BID 12/25/23 12/25/23 12/24/23 finasteride 5 mg tablet 5 mg PO DAILY 12/25/23 12/25/23 12/24/23 glipizide 10 mg tablet 10 mg PO BID 12/25/23 12/25/23 12/24/23 levothyroxine 125 mcg tablet 125 mcg PO QAM 12/25/23 12/25/23 12/24/23 nitroglycerin 0.4 mg sublingual 0.4 mg sublingual UD PRN Chest Pain 12/25/23 12/25/23 Unknown tablet phenytoin sodium extended 100 mg 100 mg PO DAILY 12/25/23 12/25/23 12/24/23 capsule propranolol 160 mg capsule,24 160 mg PO HS 12/25/23 12/25/23 12/24/23 hr,extended release sitagliptin phosphate 50 1 tab PO BID 12/25/23 12/25/23 Unknown mg-metformin 1,000 mg tablet (Lino) tamsulosin 0.4 mg capsule 0.4 mg PO BID 12/25/23 12/25/23 12/24/23 Active Medications Generic Name Dose Route Start Last Admin Trade Name Freq PRN Reason Stop Dose Admin Aspirin 81 mg 12/26/23 09:00 12/30/23 08:48 Aspirin 81 Mg Ectab PO 01/25/24 08:59 81 mg DAILY ALESSANDRA Administration Atorvastatin Calcium 80 mg 12/25/23 21:00 12/29/23 19:37 Atorvastatin 40 Mg Tab PO 01/24/24 20:59 80 mg PM ALESSANDRA Administration Cilostazol 50 mg 12/25/23 21:00 12/30/23 08:48 Cilostazol 100 Mg Tab PO 01/24/24 20:59 50 mg BID ALESSANDRA Administration Docusate Sodium 100 mg 12/25/23 21:00 12/30/23 08:53 Docusate Sodium 100 Mg Cap PO 01/24/24 20:59 100 mg BID ALESSANDRA Administration Famotidine 20 mg 12/25/23 21:00 12/30/23 09:51 Famotidine 20 Mg Tab PO 01/24/24 20:59 20 mg BID ALESSANDRA Administration Finasteride 5 mg 12/26/23 09:00 12/30/23 08:48 Finasteride 5 Mg Tab PO 01/25/24 08:59 5 mg DAILY ALESSANDRA Administration Heparin Sodium (Porcine) 5,000 units 12/26/23 09:00 12/30/23 14:08 Heparin Sod 5,000 Unit/0.5 Ml Vial SQ 01/25/24 08:59 5,000 units Q8 ALESSANDRA Administration Insulin Aspart 0 units 12/25/23 21:00 12/30/23 12:14 Insulin Aspart Per Unit Charge SC 01/24/24 20:59 4 units ACHS ALESSANDRA Administration Insulin Glargine 0 - 8 units 12/25/23 21:00 12/30/23 08:53 Lantus Per Unit Charge SQ 01/24/24 20:59 4 units BID ALESSANDRA Administration Levothyroxine Sodium 125 mcg 12/26/23 06:30 12/30/23 05:46 Levothyroxine Sodium 125 Mcg Tablet PO 01/25/24 06:29 125 mcg DAILYBB ALESSANDRA Administration Olanzapine 2.5 mg 12/25/23 14:29 12/26/23 20:43 Olanzapine 10 Mg/2.1 Ml Sdv IM 01/24/24 14:29 2.5 mg Q6H PRN Administration Agitation/Combative Olanzapine 5 mg 06/23/24 21:00 12/29/23 19:38 Olanzapine 5 Mg Tablet PO 01/28/24 20:59 5 mg HS ALESSANDRA Administration Phenytoin Sodium 100 mg 12/25/23 09:30 12/30/23 08:48 Phenytoin Sodium Er 100 Mg Cap PO 01/24/24 09:29 100 mg DAILY ALESSANDRA Administration Propranolol HCl 160 mg 12/25/23 21:00 12/29/23 19:37 Propranolol Hcl La 80 Mg Capcr PO 01/24/24 20:59 160 mg HS ALESSANDRA Administration Tamsulosin HCl 0.4 mg 12/25/23 21:00 12/30/23 08:48 Tamsulosin Hcl 0.4 Mg Cap PO 01/24/24 20:59 0.4 mg BID ALESSANDRA Administration (1) Altered mental status Altered mental status type: disorientation Qualified Code(s): R41.0 - Disorientation, unspecified
[2023-12-31 07:34] LABS: BUN Creatinine Ratio 23.9 (10-20); Creatinine Clr Calc Pharmacy 31.1 ml/min; Est GFR (African American) 39.5 ml/min; Potassium 4.5 mmol/L (3.5-5.1)
[2023-12-31] MEDS: amLODIPine BESYLATE 5 MG TAB PO SCH (08:27)
--- NOTE | 2023-12-31 09:47 | Ultrasound Report ---
RENAL ULTRASOUND CLINICAL HISTORY: [id number] v [id number] COMPARISON STUDY: None. TECHNIQUE: Sonography of the kidneys and the urinary bladder was performed. FINDINGS: The right kidney measures 10.2 cm in maximal dimension and the left measures 10.8 cm. There is no hydronephrosis. Moderate bilateral renal cortical thinning is present. No renal calculus or ma ss is identified. Multiple echogenic bilateral renal lesions measure up to 2.7 cm. These represent cy sts. The bladder wall is irregular and appears trabeculated. The prostate is mildly enlarged. IMPRESSION: 1. No hydronephrosis. 2. Moderate bilateral renal cortical thinning. 3. Mildly enlarged prostate. Irregular, trabeculated bladder wall, likely chronic. 4. Multiple renal cysts. ACT 112: Negative or not required by law. Electronically signed by: Luis Antonio Brower M.D. 12/31/2023 9:46 AM
--- NOTE | 2023-12-31 16:17 | Hospitalist Progress Note ---
Date of Service December 31, 2023 Assessment & Plan (1) Altered mental status: (2) Paranoia: (3) CAD (coronary artery disease): (4) T2DM (type 2 diabetes mellitus): (5) Melanoma: Plan Mr. Reynoso is an 83-year-old male who has significant past medical history of CAD with history of coronary artery stent, PAD on Pletal, T2DM, HTN, HLD, BPH, Seizure d/o and malignant melanoma who was admitted for evaluation of encephalopathy. Patient reportedly violent with son/family while on road trip. MRI unrevealing. Carotids negative. No signs of melanoma infiltration in [facility]. Spoke to son and daughter in law---decline noted for last couple of years, but this "outburst" first of its kind. would like to pursue placement in interim. Aggressive overnight with behavioral disturbance on 12/25. Patient started on zyprexa qhs on 12/26. Plan to continue. No further aggressive outbursts. Patient much more calm today, fluctuating confusion noted, but stable. Spoke to son on the phone, agrees with plan. Medically stable for dispo. US renal reviewed: cortical thinning c/w CKD #Acute encephalopathy, c/f agitated delirium *improving #Neurocognitive disorder, suspicious for dementia Brief psychotic episode H/O Seizure disorder No obvious source of infection DD: Metabolic/metastatic disease/seizure/medications/delirium/hypertensive encephalopathy --CT head:There is no hemorrhage, mass effect, or evidence of acute territorial ischemia by CT criteria. --CXR:Cardiomegaly with no acute cardiopulmonary abnormality identified. --UA not suggestive of UTI --Normal TSH, lactate, procalcitonin, CK levels, Normal BioFire --VBG showed no hypercarbia --MRI brain negative toxicology screen negative, alcohol level 0 B12 350, ammonia levels 17 --Blood cultures NGTD --EEG nonspecific changes -- Hold sedating meds as able --Consulted neurology Suspect likely delirium on underlying dementia, no further work up--dementia work up as OP --Consulted psychiatry no clear history of psych d/o, suspect dementia as well; history of anger issues from family report -olanzapine 2.5mg PO?IM prn for agitation -Continue to 5mg qhs Continue home phenytoin #Blood culture contaminate -07/11 blood culture + after 5 days, likely contaminant CTM clinic status stable no need for further medications at this time #Malignant melanoma Left scalp region S/P confirmed biopsy Plan for surgical excision No MRI involvement in [facility] noted #Hypertensive urgency Likely situational Continue home propranolol for now If BP persistently elevated, will add antihypertensives Monitor BP closely continue amlodipine 10mg daily #Possible CECILIA Vs CKD Unknown baseline creatinine Creatinine 1.6, down to 1.4 this am, CTM Avoid nephrotoxic agents as able Likely CKD given stabillity of renal function BMP in am, repeat urine studies ordered--proteinuria, all else normal Renal us :c/w CKD #DM Type II Will hold oral diabetic meds Update A1c: 6.0% 12/25 ISS, basal Insulin, Accu checks per protocol Monitor BGs #Seizure disorder No recent seizure episode for many years per family Continue phenytoin #CAD S/P stent PAD Continue aspirin, Lipitor, cilostazol #Hypothyroidism Normal TSH Continue levothyroxine #BPH Continue home medications Bladder scan as needed #Anemia of chronic disease Anemia work up unrevealing, suggestive of AoCD DVT Px: Heparin SQ CODE STATUS DNI DNR as per patient's son-POA Disposition Admit to PCU--transfered to Med/surg PT OT prior to discharge: plan for placement/rehab, referral to [facility] Admission and Anticipated Discharge Date Admission Date: December 25, 2023 Subjective NAEO Discussed rehab and placement with son and daughterinlaw at bedside Physical Exam Constitutional: WD/WN, vitals as above Respiratory: normal respiratory effort, lungs clear to auscultation Cardiovascular: RRR, no murmur, no edema Results & Data Results & Data Vital Signs (Past 12 Hours) Vital Signs Temp Pulse Resp BP BP Pulse Ox O2 Del Method 12/31/23 15:33 36.3 C L 62 16 172/86 H 98 Room Air 12/31/23 07:35 36.5 C 59 L 16 164/62 H 97 Room Air Laboratory Results [facility] 12/31/23 06:29 Sodium 139 Potassium 4.5 Chloride 106 Carbon Dioxide 25 BUN 43 H Creatinine 1.80 H Glucose 185 H Calcium 9.0 Medications Administered Home Medications Medication Instructions Recorded Confirmed Last Taken Centrum 1 tab PO DAILY 12/25/23 12/25/23 12/24/23 aspirin 81 mg tablet,delayed 81 mg PO DAILY 12/25/23 12/25/23 12/24/23 release atorvastatin 80 mg tablet 80 mg PO PM 12/25/23 12/25/23 12/24/23 cilostazol 50 mg tablet 50 mg PO BID 12/25/23 12/25/23 12/24/23 docusate sodium 100 mg capsule 100 mg PO BID 12/25/23 12/25/23 12/24/23 famotidine 20 mg tablet 20 mg PO BID 12/25/23 12/25/23 12/24/23 finasteride 5 mg tablet 5 mg PO DAILY 12/25/23 12/25/23 12/24/23 glipizide 10 mg tablet 10 mg PO BID 12/25/23 12/25/23 12/24/23 levothyroxine 125 mcg tablet 125 mcg PO QAM 12/25/23 12/25/23 12/24/23 nitroglycerin 0.4 mg sublingual 0.4 mg sublingual UD PRN Chest Pain 12/25/23 12/25/23 Unknown tablet phenytoin sodium extended 100 mg 100 mg PO DAILY 12/25/23 12/25/23 12/24/23 capsule propranolol 160 mg capsule,24 160 mg PO HS 12/25/23 12/25/23 12/24/23 hr,extended release sitagliptin phosphate 50 1 tab PO BID 12/25/23 12/25/23 Unknown mg-metformin 1,000 mg tablet (Lino) tamsulosin 0.4 mg capsule 0.4 mg PO BID 12/25/23 12/25/23 12/24/23 Active Medications Generic Name Dose Route Start Last Admin Trade Name Dilip PRN Reason Stop Dose Admin Amlodipine Besylate 10 mg 12/31/23 09:00 12/31/23 08:27 Amlodipine Besylate 5 Mg Tab PO 01/30/24 08:59 10 mg QAM ALESSANDRA Administration Aspirin 81 mg 12/26/23 09:00 12/31/23 08:26 Aspirin 81 Mg Ectab PO 01/25/24 08:59 81 mg DAILY ALESSANDRA Administration Atorvastatin Calcium 80 mg 12/25/23 21:00 12/30/23 20:50 Atorvastatin 40 Mg Tab PO 01/24/24 20:59 80 mg PM ALESSANDRA Administration Cilostazol 50 mg 12/25/23 21:00 12/31/23 08:27 Cilostazol 100 Mg Tab PO 01/24/24 20:59 50 mg BID ALESSANDRA Administration Docusate Sodium 100 mg 12/25/23 21:00 12/31/23 08:32 Docusate Sodium 100 Mg Cap PO 01/24/24 20:59 100 mg BID ALESSANDRA Administration Famotidine 20 mg 12/25/23 21:00 12/31/23 08:26 Famotidine 20 Mg Tab PO 01/24/24 20:59 20 mg BID ALESSANDRA Administration Finasteride 5 mg 12/26/23 09:00 12/31/23 08:26 Finasteride 5 Mg Tab PO 01/25/24 08:59 5 mg DAILY ALESSANDRA Administration Heparin Sodium (Porcine) 5,000 units 12/26/23 09:00 12/31/23 14:42 Heparin Sod 5,000 Unit/0.5 Ml Vial SQ 01/25/24 08:59 5,000 units Q8 ALESSANDRA Administration Insulin Aspart 0 units 12/25/23 21:00 12/31/23 12:23 Insulin Aspart Per Unit Charge SC 01/24/24 20:59 4 units ACHS ALESSANDRA Administration Insulin Glargine 0 - 8 units 12/25/23 21:00 12/31/23 08:32 Lantus Per Unit Charge SQ 01/24/24 20:59 8 units BID ALESSANDRA Administration Levothyroxine Sodium 125 mcg 12/26/23 06:30 12/31/23 05:55 Levothyroxine Sodium 125 Mcg Tablet PO 01/25/24 06:29 125 mcg DAILYBB ALESSANDRA Administration Olanzapine 2.5 mg 12/25/23 14:29 12/26/23 20:43 Olanzapine 10 Mg/2.1 Ml Sdv IM 01/24/24 14:29 2.5 mg Q6H PRN Administration Agitation/Combative Olanzapine 5 mg 12/29/23 21:00 12/30/23 20:49 Olanzapine 5 Mg Tablet PO 01/28/24 20:59 5 mg HS ALESSANDRA Administration Phenytoin Sodium 100 mg 12/25/23 09:30 12/31/23 08:26 Phenytoin Sodium Er 100 Mg Cap PO 01/24/24 09:29 100 mg DAILY ALESSANDRA Administration Propranolol HCl 160 mg 12/25/23 21:00 12/30/23 20:49 Propranolol Hcl La 80 Mg Capcr PO 01/24/24 20:59 160 mg HS AELSSANDRA Administration Tamsulosin HCl 0.4 mg 12/25/23 21:00 12/31/23 08:26 Tamsulosin Hcl 0.4 Mg Cap PO 01/24/24 20:59 0.4 mg BID ALESSANDRA Administration (1) Altered mental status Altered mental status type: disorientation Qualified Code(s): R41.0 - Disor ientation, unspecified
[2023-12-31] MEDS: ACETAMINOPHEN 325 MG TAB PO PRN (16:53)
--- NOTE | 2024-01-01 14:56 | Hospitalist Progress Note ---
Date of Service January 01, 2024 Assessment & Plan (1) Altered mental status: (2) Paranoia: (3) CAD (coronary artery disease): (4) T2DM (type 2 diabetes mellitus): (5) Melanoma: Plan Mr. Reynoso is an 83-year-old male who has significant past medical history of CAD with history of coronary artery stent, PAD on Pletal, T2DM, HTN, HLD, BPH, Seizure d/o and malignant melanoma who was admitted for evaluation of encephalopathy. Patient reportedly violent with son/family while on road trip. MRI unrevealing. Carotids negative. No signs of melanoma infiltration in [facility]. Spoke to son and daughter in law---decline noted for last couple of years, but this "outburst" first of its kind. would like to pursue placement in interim. Aggressive overnight with behavioral disturbance on 12/25. Patient started on zyprexa qhs on 12/26. Plan to continue. No further aggressive outbursts. Patient much more calm, fluctuating confusion noted, but stable. Spoke to son on the phone, agrees with plan. Medically stable for dispo. US renal reviewed: cortical thinning c/w CKD Per previous provider with addendum, he was treated for the following: Acute encephalopathy, agitated delirium *improving Neurocognitive disorder, suspicious for dementia Brief psychotic episode H/O Seizure disorder No obvious source of infection DD: Metabolic/metastatic disease/seizure/medications/delirium/hypertensive encephalopathy --CT head:There is no hemorrhage, mass effect, or evidence of acute territorial ischemia by CT criteria. --CXR:Cardiomegaly with no acute cardiopulmonary abnormality identified. --UA not suggestive of UTI --Normal TSH, lactate, procalcitonin, CK levels, Normal BioFire --VBG showed no hypercarbia --MRI brain negative toxicology screen negative, alcohol level 0 B12 350, ammonia levels 17 --Blood cultures NGTD --EEG nonspecific changes -- Hold sedating meds as able --Consulted neurology Suspect likely delirium on underlying dementia, no further work up--dementia work up as OP --Consulted psychiatry no clear history of psych d/o, suspect dementia as well; history of anger issues from family report -olanzapine 2.5mg PO?IM prn for agitation -Continue to 5mg qhs Continue home phenytoin Blood culture contaminate -1/4 blood culture + after 5 days, likely contaminant CTM clinic status stable no need for further medications at this time Malignant melanoma Left scalp region S/P confirmed biopsy Plan for surgical excision No MRI involvement in [facility] noted Hypertensive urgency Likely situational Continue home propranolol for now If BP persistently elevated, will add antihypertensives Monitor BP closely continue amlodipine 10mg daily Possible CECILIA Vs CKD Unknown baseline creatinine Creatinine 1.6, improving Avoid nephrotoxic agents as able Likely CKD given stability of renal function BMP in am, repeat urine studies ordered--proteinuria, all else normal Renal us :c/w CKD DM Type II Will hold oral diabetic meds Update A1c: 6.0% 12/25 ISS, basal Insulin, Accu checks per protocol Monitor BGs Seizure disorder No recent seizure episode for many years per family Continue phenytoin CAD S/P stent PAD Continue aspirin, Lipitor, cilostazol Hypothyroidism Normal TSH Continue levothyroxine BPH Continue home medications Bladder scan as needed Anemia of chronic disease Anemia work up unrevealing, suggestive of anemia of chronic disease DVT Px: Heparin SQ CODE STATUS: DNI DNR as per patient's son-POA Disposition: PT OT prior to discharge: plan for placement/rehab, referral to [facility] Admission and Anticipated Discharge Date Admission Date: December 25, 2023 Subjective Pt was seen while resting comfortably. Awakened, denied acute concerns. Review of Systems Review of Systems: All systems reviewed & are unremarkable except as noted in Subjective Physical Exam Physical Exam: General: Alert, orientedx2. No acute distress Psych: Appropriate mood and affect Neuro: No gross deficits in the bed HEENT: NC/AT CV: RRR Resp: Breath sounds clear bilaterally, no increased effort of breathing. Abdomen: Soft, nontender, nondistended Extremities: No edema in lower extremities bilaterally. Results & Data Results & Data Vital Signs (Past 12 Hours) Vital Signs Temp Pulse Resp BP Pulse Ox O2 Del Method 01/01/24 07:25 36.3 C L 63 16 150/67 H 96 Room Air (1) Altered mental status Altered mental status type: disorientation Qualified Code(s): R41.0 - Disorientation, unspecified
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
== END 2024-01-03 16:20 | DRG 884 ==
LOC: ED 06:01 → 2N 09:44 → SUATTDRO 09:44 → 2N 19:33 → 3N 12-27 20:07